=== PATIENT | female | born 1980 | race American Indian/Alaskan Native ===

== ENCOUNTER 2019-08-05 20:57 | Inpatient (IN) | payer BC ==
[2019-08-05] MEDS ORDERED: QUEtiapine 50 MG Tab.SR PO PRN (21:00)
[2019-08-05] MEDS ORDERED: Ondansetron 4 MG/2 ML SDV IVPUSH PRN (21:27)
[2019-08-05] MEDS: Dextrose 5%-Lactated Ringers 1,000 ML IV SCH (21:39)
[2019-08-05] MEDS: HYDROmorphone 1 MG/ML Syringe IVPUSH PRN (22:54)
[2019-08-05] MEDS ORDERED: QUEtiapine 50 MG Tab.SR PO ONE (23:45)
[2019-08-05] MEDS ORDERED: Mirtazapine 15 MG Tab PO ONE (23:45)
[2019-08-05] MEDS: levETIRAcetam 250 MG Tab PO SCH (23:55)
[2019-08-06] MEDS: Dextrose 5%-Lactated Ringers 1,000 ML IV SCH ×2 (04:20→16:38)
[2019-08-06] MEDS: HYDROmorphone 1 MG/ML Syringe IVPUSH PRN ×2 (07:22→10:30)
[2019-08-06] MEDS ORDERED: Ondansetron 4 MG/2 ML SDV ONE (10:13)
[2019-08-06] MEDS ORDERED: fentaNYL 250 MCG/5 ML SDV ONE (10:13)
[2019-08-06] MEDS ORDERED: Rocuronium 50 MG/5 ML Vial ONE (10:13)
[2019-08-06] MEDS ORDERED: Glycopyrrolate 0.2 MG/ML 5 ML MDV ONE (10:13)
[2019-08-06] MEDS ORDERED: Neostigmine Methylsulfate 1 MG/ML 5 ML Syringe ONE (10:13)
[2019-08-06] MEDS ORDERED: Dexamethasone 4 MG/ML SDV ONE (10:13)
[2019-08-06] MEDS ORDERED: Propofol 200 MG/20 ML SDV ONE (10:13)
[2019-08-06] MEDS ORDERED: Succinylcholine 200 MG/10 ML MDV ONE (10:13)
[2019-08-06] MEDS: levETIRAcetam 250 MG Tab PO SCH ×2 (10:42→20:29)
[2019-08-06] MEDS ORDERED: Ketamine 500 MG/5 ML MDV IV SCH (11:30)
[2019-08-06] MEDS ORDERED: Magnesium Sulfate 1.7 GM in Sodium Chloride 0.9% 100 ML IV SCH (11:30)
[2019-08-06] MEDS ORDERED: Ketamine 50 MG in Sodium Chloride 0.9% 49.5 ML IV SCH (11:30)
[2019-08-06] MEDS ORDERED: Meropenem 500 MG SDV ONE (12:13)
[2019-08-06] MEDS ORDERED: Bupivacaine 0.5% 50 ML MDV ONE (12:15)
[2019-08-06] MEDS ORDERED: Lidocaine 1% with EPINEPHrine 1:100,000 50 ML MDV ONE (12:15)
[2019-08-06] MEDS: cefOXitin 2 GM in Sodium Chloride 0.9% 50 ML IV ONE ×2 (12:31→13:07)
[2019-08-06] MEDS ORDERED: Lactated Ringers 1,000 ML ONE (12:57)
[2019-08-06] MEDS: Magnesium Sulfate 2.8 GM in Sodium Chloride 0.9% 250 ML IV ONE ×2 (13:05→15:14)
[2019-08-06] MEDS ORDERED: Diphtheria,Pertussis(Acell),Tetanus Vaccine 0.5 ML SDV IM ONE (14:00)
[2019-08-06] MEDS ORDERED: Acetaminophen 500 MG Tab PO PRN (16:02)
[2019-08-06] MEDS ORDERED: Metoclopramide 10 MG/2 ML SDV IVPUSH PRN (16:02)
[2019-08-06] MEDS ORDERED: Calcium Gluconate 10% 1 GM/10 ML SDV IVPUSH PRN (16:02)
[2019-08-06] MEDS ORDERED: Labetalol 20 MG/4 ML Syringe IVPUSH PRN (16:02)
[2019-08-06] MEDS ORDERED: diphenhydrAMINE 50 MG/ML SDV IVPUSH PRN (16:02)
[2019-08-06] MEDS: MVI, Adult with Vitamin K 10 ML, Thiamine 200 MG, Chromium/Copper/Mang/Selen/Zn 1 ML in... IV SCH ×4 (17:37)
[2019-08-06] MEDS: cefOXitin 2 GM in Sodium Chloride 0.9% 50 ML IV SCH (17:39)
[2019-08-06] MEDS: Acetaminophen 500 MG Tab PO SCH (18:30)
[2019-08-06] MEDS: Escitalopram 20 MG Tab PO SCH (18:30)
[2019-08-06] MEDS: Lisinopril 20 MG Tab PO SCH (18:32)
[2019-08-06] MEDS: Pantoprazole 40 MG Vial IVPUSH SCH (18:32)
[2019-08-06] MEDS: oxyCODONE 5 MG Tab PO PRN (19:10)
[2019-08-06] MEDS: QUEtiapine 50 MG Tab.SR PO SCH (20:29)
[2019-08-06] MEDS: Mirtazapine 15 MG Tab PO SCH (20:30)
[2019-08-06] MEDS: ClonazePAM 1 MG Tab PO SCH (20:41)
[2019-08-06] MEDS ORDERED: Mirtazapine 15 MG Tab PO SCH (21:00)
[2019-08-07] MEDS: Dextrose 5%-Lactated Ringers 1,000 ML IV SCH ×4 (00:04→22:11)
[2019-08-07] MEDS: cefOXitin 2 GM in Sodium Chloride 0.9% 50 ML IV SCH ×3 (00:05→12:46)
[2019-08-07] MEDS: Acetaminophen 500 MG Tab PO SCH ×3 (02:41→17:39)
[2019-08-07] MEDS: oxyCODONE 5 MG Tab PO PRN ×3 (02:55→16:02)
[2019-08-07] MEDS ORDERED: Iopamidol 612 MG/ML 50 ML SDV PO STA (03:44)
[2019-08-07] MEDS: HYDROmorphone 0.5 MG/0.5 ML Syringe IVPUSH PRN ×2 (05:54→12:53)
[2019-08-07] MEDS: Cyclobenzaprine 10 MG Tab PO PRN ×2 (07:55→17:44)
[2019-08-07] MEDS: levETIRAcetam 250 MG Tab PO SCH ×2 (07:59→21:53)
[2019-08-07] MEDS: ClonazePAM 1 MG Tab PO SCH ×2 (07:59→21:59)
--- NOTE | 2019-08-07 08:20 | CRLCR ---
Indication: Post bariatric surgery. Small-bowel obstruction. Technique: Upper GI 5 views Comparison: None Findings/Impression: No sign of oral contrast extravasation to suggest leak. No sign of bowel obstruction. No acute abnormality evident. Dictated by Kemal Najera MD @ Aug 07 2019 8:15AM Signed by Dr. Kemal Najera @ Aug 07 2019 8:18AM
[2019-08-07] MEDS: Escitalopram 20 MG Tab PO SCH (09:59)
[2019-08-07] MEDS: Lisinopril 20 MG Tab PO SCH (09:59)
[2019-08-07] MEDS ORDERED: Sodium Ferric Gluconate Cmplex 250 MG in Sodium Chloride 0.9% 100 ML IV ONE (10:00)
[2019-08-07] MEDS ORDERED: Diphtheria,Pertussis(Acell),Tetanus Vaccine 0.5 ML SDV IM ONE (10:00)
[2019-08-07] MEDS: hydrOXYzine HCL 100 MG/2 ML SDV IM PRN (14:24)
--- NOTE | 2019-08-07 14:59 | PN ---
DATE OF SERVICE: 08/06/2019 This is a 39-year-old status post Denise-en-Y gastric bypass, presenting with a small bowel obstruction. She was transferred from [facility] in [place] overnight. The obstruction appears to be somewhat distal to the jejunojejunostomy. Overnight, she has been fairly comfortable and plan will be to proceed with an exploratory laparotomy with release of bowel obstruction and bowel resection as necessary later today. Potential risks of the procedure including bleeding, infection, leaks from various GI tract closures, problems with the obstruction recurring over time were all reviewed, and the patient wishes to proceed. Surgery will be undertaken later today. Shar Joyner MD /[id number]
--- NOTE | 2019-08-07 15:38 | PN ---
DATE OF SERVICE: 08/07/2019 SUBJECTIVE: Susan is postop day #1. She states her pain is controlled. She has been up ambulating. Vital signs have been stable. She is on a sips of clear liquid diet. Upper GI this morning was done and repeated. She has no other questions or concerns. OBJECTIVE: GENERAL: Susan Betancourt is a 39-year-old female, alert and orientated. VITAL SIGNS: TPR 96.8, 65, 16, blood pressure 133/87. HEENT: Negative. NECK: Supple. HEART: Regular rate and rhythm. LUNGS: Clear. ABDOMEN: Dressings dry and intact. Abdominal binder is on. EXTREMITIES: Without peripheral edema. ASSESSMENT: 1. Exploratory laparotomy with lysis of adhesion. a. Small bowel resection. b. Secondary enterostomy to reestablish Denise-en-Y small bowel anatomy. c. Repair site of ischemic injury of the proximal bowel. d. Tube decompression of small bowel. e. Placement of Interceed mesh for small bowel secondary adhesions and stricture at the jejunojejunostomy junction of the Denise limb and jejunostomy focal ischemic injury small bowel at point of adhesions and marked distention of proximal small bowel. Date of surgery: 08/06/2019. Surgeon: Shar Joyner MD. PLAN: 1. Discontinue Friedman catheter. 2. Continue sips of clear liquids. 3. Decrease IV to 100 mL per hour. 4. May shower. 5. Check CBC, CMP, mag, phos. 6. Iron infusion x2. 7. Incentive spirometer 10 times every hour while awake. The patient did not have an incentive spirometer in room. 8. Good pulmonary toilet. 9. We will evaluate p.r.n. or in a.m. Beckie Herrera PA-C /[id number]
[2019-08-07] MEDS: MVI, Adult with Vitamin K 10 ML, Thiamine 200 MG, Chromium/Copper/Mang/Selen/Zn 1 ML in... IV SCH ×4 (16:08)
[2019-08-07] MEDS: Pantoprazole 40 MG Vial IVPUSH SCH (17:39)
[2019-08-07] MEDS: HYDROmorphone 1 MG/ML Syringe IV PRN (19:55)
[2019-08-07] MEDS: QUEtiapine 50 MG Tab.SR PO SCH (21:54)
[2019-08-07] MEDS: Mirtazapine 15 MG Tab PO SCH (21:55)
[2019-08-08] MEDS: oxyCODONE 5 MG Tab PO PRN ×5 (01:45→20:22)
[2019-08-08] MEDS: Acetaminophen 500 MG Tab PO SCH ×3 (01:46→17:08)
[2019-08-08] MEDS: HYDROmorphone 1 MG/ML Syringe IV PRN ×2 (01:49→06:59)
[2019-08-08] MEDS: Cyclobenzaprine 10 MG Tab PO PRN (07:55)
[2019-08-08] MEDS: Magnesium Sulfate/Water 2 GM in Premix Bag 1 BAG IV SCH ×3 (07:58→20:19)
[2019-08-08] MEDS: Dextrose 5%-Lactated Ringers 1,000 ML IV SCH (08:04)
--- NOTE | 2019-08-08 08:12 | PN ---
DATE OF SERVICE: 08/08/2019 SUBJECTIVE: Susan is postoperative day #2. Pain has been controlled with oxycodone 5 mg. She has had some breakthrough pain, having to use the Dilaudid IV. Up, ambulating. Vital signs have been stable. Tolerated a step 2 gastric bypass diet yesterday and was advanced for the evening meal. Labs this morning, hemoglobin was 9.3, potassium 3.5, and magnesium is 1.7. REVIEW OF SYSTEMS: Remainder of review of systems negative for any pertinent positives and negatives. OBJECTIVE: GENERAL: Susan is a pleasant 39-year-old female. She is alert and orientated. VITAL SIGNS: TPR 96.6, 85, 16, blood pressure 119/79. HEENT: Negative. NECK: Supple. HEART: Regular rate and rhythm. LUNGS: Clear. ABDOMEN: Dressings dry and intact. Abdominal binder is on. EXTREMITIES: Without peripheral edema. ASSESSMENT: 1. Exploratory laparotomy with lysis of adhesions. a. Small bowel resection. b. Secondary enterostomy to re-establish Denise-en-Y small bowel anatomy. c. Repair site of ischemic injury of the proximal bowel. d. Tube decompression of small bowel. e. Placement of Interceed mesh for small bowel secondary to adhesions and stricture at the jejunojejunostomy junction of the Denise limb and jejunostomy focal ischemic injury of small bowel at point of adhesions and marked distention of proximal small bowel. f. Date of surgery: 08/06/2019. Surgeon: Shar Joyner MD. PLAN: 1. Oxycodone 5 mg 1 q.4 hours p.r.n. pain. 2. Step 3 gastric bypass diet. 3. Magnesium 2 g IV every 6 hours x48 hours. 4. K-Phos 30 millimoles IV today. 5. Dulcolax 10 mg p.o. b.i.d. until the patient has bowel movements, then discontinue. 6. Colace 100 mg b.i.d. 7. Good pulmonary toilet. 8. We will evaluate p.r.n. or in a.m. Beckie Herrera PA-C /[id number]
[2019-08-08] MEDS: levETIRAcetam 250 MG Tab PO SCH ×2 (08:57→20:23)
[2019-08-08] MEDS: Docusate Sodium 100 MG Cap PO SCH ×2 (08:57→20:22)
[2019-08-08] MEDS: Bisacodyl 5 MG Tab PO SCH ×2 (08:57→20:22)
[2019-08-08] MEDS: Escitalopram 20 MG Tab PO SCH (08:58)
[2019-08-08] MEDS: ClonazePAM 1 MG Tab PO SCH ×2 (08:58→20:30)
[2019-08-08] MEDS ORDERED: Cyanocobalamin (Vitamin B12) 1,000 MCG/ML SDV IM ONE (09:00)
[2019-08-08] MEDS: Pantoprazole 40 MG Tab.CR PO SCH (09:01)
[2019-08-08] MEDS: Lisinopril 20 MG Tab PO SCH (09:02)
[2019-08-08] MEDS ORDERED: Potassium Phos in 0.9 % NaCl 15 MMOL in Premix Bag 1 BAG IV SCH ×2 (10:00)
[2019-08-08] MEDS ORDERED: Sodium Ferric Gluconate Cmplex 250 MG in Sodium Chloride 0.9% 100 ML IV ONE (10:00)
[2019-08-08] MEDS: Potassium Phos in 0.9 % NaCl 15 MMOL in Premix Bag 1 BAG IV SCH ×4 (13:09→15:25)
[2019-08-08] MEDS: MVI, Adult with Vitamin K 10 ML, Thiamine 200 MG, Chromium/Copper/Mang/Selen/Zn 1 ML in... IV SCH ×4 (16:11)
[2019-08-08] MEDS: hydrOXYzine HCL 100 MG/2 ML SDV IM PRN (18:01)
[2019-08-08] MEDS: QUEtiapine 50 MG Tab.SR PO SCH (20:22)
[2019-08-08] MEDS: Mirtazapine 15 MG Tab PO SCH (20:22)
[2019-08-09] MEDS: Acetaminophen 500 MG Tab PO SCH ×3 (01:23→17:22)
[2019-08-09] MEDS: oxyCODONE 5 MG Tab PO PRN ×6 (01:23→21:54)
[2019-08-09] MEDS: Magnesium Sulfate/Water 2 GM in Premix Bag 1 BAG IV SCH ×4 (01:25→19:53)
[2019-08-09] MEDS: Dextrose 5%-Lactated Ringers 1,000 ML IV SCH (02:35)
[2019-08-09] MEDS: Pantoprazole 40 MG Tab.CR PO SCH (08:48)
[2019-08-09] MEDS: Docusate Sodium 100 MG Cap PO SCH ×2 (08:48→21:54)
[2019-08-09] MEDS: levETIRAcetam 250 MG Tab PO SCH ×2 (08:48→21:54)
[2019-08-09] MEDS: Bisacodyl 5 MG Tab PO SCH ×2 (08:48→21:54)
[2019-08-09] MEDS: Lisinopril 20 MG Tab PO SCH (08:48)
[2019-08-09] MEDS: Escitalopram 20 MG Tab PO SCH (08:49)
[2019-08-09] MEDS: ClonazePAM 1 MG Tab PO SCH ×2 (08:54→21:54)
[2019-08-09] MEDS: Cyclobenzaprine 10 MG Tab PO PRN (14:31)
--- NOTE | 2019-08-09 14:37 | PN ---
DATE OF SERVICE: 08/09/2019 SUBJECTIVE: Susan has been up, ambulating. Has had a lot of pain secondary to not being able to pass flatus. 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 Oral intake was 1100. Urine output 4500. REVIEW OF SYSTEMS: Remainder of review of systems negative for any pertinent positives and negatives. OBJECTIVE: GENERAL: Susan is a 39-year-old female. She is alert and orientated. VITAL SIGNS: TPR is 97.3, 91, 16, blood pressure 132/90. HEENT: Negative. NECK: Supple. HEART: Regular rate and rhythm. LUNGS: Clear. ABDOMEN: Aquacel dressing is on. Abdominal binder is on. EXTREMITIES: Without peripheral edema. ASSESSMENT: 1. Exploratory laparotomy with lysis of adhesions. a. Small bowel resection. b. Secondary enterostomy to reestablish Denise-en-Y small bowel anatomy. c. Repair of ischemic injury of the proximal bowel. d. Tube decompression of small bowel. e. Placement of Interceed mesh for small bowel secondary to adhesions and stricture at the jejunojejunostomy junction of the Denise limb and jejunostomy focal ischemic injury of small bowel at the point of adhesions and marked distention of proximal small bowel. f. Date of surgery: 08/06/2019. Surgeon: Shar Joyner MD. PLAN: 1. Faxed order for oxycodone 5 mg q.4 hours p.r.n. pain #42 to [facility], [place] in case the patient would need prior authorization. 2. Continue to take bowel stimulation. 3. Ambulation is encouraged. 4. We will evaluate p.r.n. or in a.m. Beckie Herrera PA-C /[id number]
[2019-08-09] MEDS ORDERED: MVI, Adult with Vitamin K 10 ML, Thiamine 200 MG, Chromium/Copper/Mang/Selen/Zn 1 ML in... IV SCH ×4 (16:00)
[2019-08-09] MEDS: QUEtiapine 50 MG Tab.SR PO SCH (21:54)
[2019-08-09] MEDS: Mirtazapine 15 MG Tab PO SCH (21:55)
[2019-08-10] MEDS: oxyCODONE 5 MG Tab PO PRN ×2 (02:31→06:38)
[2019-08-10] MEDS: Cyclobenzaprine 10 MG Tab PO PRN (02:31)
[2019-08-10] MEDS: Acetaminophen 500 MG Tab PO SCH (02:32)
[2019-08-10] MEDS: Magnesium Sulfate/Water 2 GM in Premix Bag 1 BAG IV SCH ×2 (02:33→08:18)
[2019-08-10 07:17] VITALS: BP 127/87; PULSE 78
--- NOTE | 2019-08-13 09:40 | DISCH ---
FINAL DIAGNOSES: 1. Small bowel obstruction secondary to adhesions and stricture at junction of Denise limb and jejunojejunostomy. 2. Focal ischemic changes in small bowel at the point of adhesion and marked distention of proximal small bowel. 3. Bariatric surgery status. 4. History of anxiety and depression. 5. History of tuberculosis. 6. History of hypertension. 7. History of kidney stones. PROCEDURES: Operative procedure done on 08/219, exploratory laparotomy with lysis of adhesions: 1. Small-bowel resection. 2. Secondary enteroenterostomy to reestablish Denise-en-Y small bowel anatomy. 3. Repair of site of ischemic injury proximal small bowel. 4. Tube decompression of small bowel. 5. Placement of Interceed mesh to limit recurrent adhesion formation between pelvic and abdominal wall and underlying viscera. SUMMARY: This is a 39-year-old status post previous Denise-en-Y gastric bypass, presenting with a picture of small bowel obstruction at [facility] in [place]. After preoperative evaluation, she was transferred here, given that she is a bariatric surgery patient. The following day, the patient underwent exploration with the above findings. Postoperatively, she had quite a bit of edema in her Denise limb, and we advanced the diet somewhat slowly. She is presently now tolerating a step-3 diet, which we will keep her on until her first appointment. She will be sent home on her usual medications plus oxycodone 5 mg p.o. q.4 hours p.r.n. pain #42, along with Tylenol 1 g p.o. q.6 hours p.r.n., and we will send her home with 2 doses of milk of magnesia to augment her bowel function. She will be following up with Beckie Herrera at [facility] on 08/20/19, at 11:00 a.m.
--- NOTE | 2019-08-14 16:30 | OR ---
DATE OF PROCEDURE: 08/06/2019 SURGEON: Shar Joyner MD PREOPERATIVE DIAGNOSIS: Small bowel obstruction. POSTOPERATIVE DIAGNOSES: 1. Small bowel obstruction secondary to adhesions and stricture at junction of Denise limb entering jejunojejunostomy. 2. Focal ischemic injury to small bowel at point of adhesion. 3. Marked distention of proximal small bowel. OPERATIVE PROCEDURES: Exploratory laparotomy with lysis of adhesions and: 1. Small bowel resection (84115). 2. Secondary enteroenterostomy to reestablish Denise-en-Y small bowel anatomy (12749). 3. Repair of site of ischemic injury to proximal small bowel (22422). 4. Acute tube decompression of the distended small bowel (98347). 5. Placement of Interceed mesh to limit recurrent adhesion formation between pelvic and abdominal wall and underlying viscera (26961). ANESTHESIA: General. INDICATIONS FOR PROCEDURE: The patient presents with a picture of small bowel obstruction and was in the [facility]. Due to the lack of bariatric surgeon availability, she was transferred here for management of small bowel obstruction. Plan is to proceed with limited laparotomy. Potential risks of the procedure including bleeding, infection, leaks from GI tract closures, problems with recurrent obstruction over time were all reviewed, and the patient wishes to proceed. DETAILS OF PROCEDURE: The patient was taken to the operating room, placed in a supine position. After general endotracheal anesthesia was induced, Friedman catheter was inserted, and the abdomen prepped and draped. A midline incision from the umbilicus roughly a handsbreadth toward the xiphoid was then made and carried down through the full-thickness abdominal wall. Upon entering the peritoneal cavity, it was noted that the Denise limb was especially tightly distended. As one traced up that area, this was being distorted by adhesion between the liver and the Denise limb. The adhesion was taken down, and Denise limb at that point was noted to have an edge of ischemic serosa and adjacent mesentery. This was repaired with a transversely oriented ESTEFANI purple load, excising the ischemic portion. This left a very satisfactory lumen after the repair. At this point, it was noted that the patient had some angulation of the point where the Denise limb entered the jejunojejunostomy, which was somewhat stenotic, and this jejunojejunostomy was then resected with 3 components being divided with ESTEFANI clint. The proximal small bowel, i.e., the Denise limb, was quite distended still at this point and an enterotomy was made in that staple line and a Gassaway sump tube passed into that, decompressing small bowel. GI tract continuity was initially reestablished with anastomosis between what had been the end of the biliopancreatic limb to the beginning of the common limb in a [id number] manner with 60 mm ESTEFANI clint. Common opening was closed transversely with the same stapler, and the angles of anastomosis reinforced with some 3-0 Vicryl stitch and mesenteric defect with 2-0 silk stitch. The second anastomosis to reestablish the Denise-en-Y configuration was then made around 20 cm distal to the first anastomosis with the same configuration and reinforcement of the angles and mesenteric closure. At that point, no further problems were noted. The abdomen was irrigated with antibiotic-containing saline solution. Bilateral transversus abdominis plane blocks were placed, and the fascia was anesthetized with 0.5% Marcaine mixed with lidocaine. The midline fascia was then approximated with #2 Vicryl stitch, subcutaneous tissue with 2 layers of 3-0 and 4-0 Vicryl stitch deep, and clint for the skin. Dressing was applied. The patient was taken to the recovery room in satisfactory condition. There were no evident complications. Shar Joyner MD /[id number]
== END 2019-08-10 08:54 | disposition home or self-care (01) | DRG 220 ==
LOC: JP.MS 20:57
PROVIDERS: ADMIT Surgery; ATTEND Surgery
PROC: 0DB80ZZ Excision of Small Intestine, Open Approach (ICD-10-PCS; principal; 2019-08-06)
PROC: 0D160ZA Bypass Stomach to Jejunum, Open Approach (ICD-10-PCS; 2019-08-06)
PROC: 3E0M05Z Introduction of Adhesion Barrier into Peritoneal Cavity, Open Approach (ICD-10-PCS; 2019-08-06)
PROC: 0D788ZZ Dilation of Small Intestine, Via Natural or Artificial Opening Endoscopic (ICD-10-PCS; 2019-08-06)
DX: K56.609 Unspecified intestinal obstruction, unspecified as to partial versus complete obstruction (principal); F33.9 Major depressive disorder, recurrent, unspecified; I10 Essential (primary) hypertension; F41.1 Generalized anxiety disorder; G40.909 Epilepsy, unspecified, not intractable, without status epilepticus; K21.9 Gastro-esophageal reflux disease without esophagitis; M54.2 Cervicalgia; G89.29 Other chronic pain; M79.7 Fibromyalgia; G47.00 Insomnia, unspecified; Z98.84 Bariatric surgery status; Z90.49 Acquired absence of other specified parts of digestive tract; Z79.899 Other long term (current) drug therapy; Z88.8 Allergy status to other drugs, medicaments and biological substances
CPT/HCPCS: 36415; 74240; 80053; 82607; 82728; 82746; 83735; 83880; 84100; 85025; 85027; 88305; 88307; 90471; 90715; 94762; A9270-GY; C9113; J0171; J0330; J0694; J1100; J1170; J2020; J2185; J2405; J2704; J2710; J2795; J2916; J3010; J3410; J3411; J3420; J3475; J3490; J7050; J7120; J7121; Q9967